=== PATIENT | female | born 1935 | race African-American/Black ===

== ENCOUNTER 2016-08-11 03:02 | Emergency (ER) | payer MEDICARE, OTHER ==
[2016-08-11 01:55] LABS: INTERNATIONAL NORMAL RATI 1.1 UNITS (-); PROTIME (NOT ORD) 14.2 SEC (12.0-14.5)
[2016-08-11 02:00] LABS: BASOPHILS 0.4 %; BASOPHILS ABSOLUTE 0.02 10/3/uL (0.0-0.16); EOSINOPHILS 3.5 %; EOSINOPHILS ABSOLUTE 0.19 10/3/uL (0.0-0.53); ER CBC TAT 0 Hrs 18 Mins; HEMATOCRIT 35.1 % (36.0-48.0); HEMOGLOBIN 11.2 g/dL (12.0-16.0); IMMATURE GRANULOCYTES 0.7 %; IMMATURE GRANULOCYTES ABSOLUTE 0.04 10/3/uL (0.0-0.11); LYMPHOCYTES 25.7 %; LYMPHOCYTES ABSOLUTE 1.38 10/3/uL (0.67-4.30); MEAN CORPUS HGB CONC 31.9 g/dL (32.0-36.0); MEAN CORPUSCULAR HEMOGLOB 30.7 pg (26.0-34.0); MEAN CORPUSCULAR VOLUME 96.2 fL (80-100); MEAN PLATELET VOLUME 10.1 fL (9.2-13.0); MONOCYTES 14.4 %; MONOCYTES ABSOLUTE 0.77 10/3/uL (0.21-1.20); NEUTROPHILS 55.3 %; NEUTROPHILS ABSOLUTE 2.96 10/3/uL (2.02-8.40); PLATELET COUNT 141 10/3/uL (150-400); RBC DISTRIBUTION WIDTH 15.7 % (12.0-16.0); RED CELL COUNT 3.65 10/6/uL (4.0-5.6); WHITE BLOOD CELLS 5.4 10/3/uL (4.5-10.5)
[2016-08-11 02:03] LABS: MANUAL DIFF NO %
[2016-08-11 02:10] LABS: BUN (BLOOD UREA NITROGEN) 45 MG/DL (6-23); CALCIUM, SERUM 7.8 MG/DL (8.5-10.4); CHEST PAIN PROFILE TAT 0 Hrs 28 Mins; CHLORIDE, SERUM 100 MMOL/L (96-112); CO2 (CARBON DIOXIDE) 27 MMOL/L (24-34); CREATININE 8.38 MG/DL (0.55-1.02); GFR AFRICAN AMERICAN 5 ML/MIN (>=60); GFR NON AFRICAN AMERICAN 4 ML/MIN (>=60); GLUCOSE, SERUM 116 MG/DL (60-99); POTASSIUM, SERUM 4.3 MMOL/L (3.5-5.3); SODIUM, SERUM 141 MMOL/L (135-148); TROPONIN I <0.02 NG/ML (<0.05)
[2016-08-11 02:34] LABS: PARTIAL THROMBO TIME 25.9 SEC (22.5-37.2)
[~2016-08-11 03:02] MED LIST: AGGRENOX PO; ALTOPREV60 MG PO; ANTI-NAUSEA PO; ASA5GR PO; ASAB PO; ATROVENTUD INH; BIDIL20/37 PO; C25 PO; C5 PO; CARASPUDL PO; CENTRUM TAB1 TAB PO; CIP5 PO; COLCH6 PO; COLCRYS0.6 MG PO; CORDARONE PO; DEMA20 PO; DIGITEK0.125 MG PO; DIL4TAB PO; DIOV160 PO; DIOVAN HC2 PO; DIOVAN320 MG PO; EPOGEN10000 MG/M SC; EZFE 200200 MG PO; FESO4 PO; FOLBIC PO; FOLIC PO; HALF81 PO; HYDROCODONE APAP PO; IRON; IRON INFUSION; IRON325 MG PO; K-TABS10 MEQ PO; KLONO5 PO; KLOR-CON 1010 MEQ PO; KLOR-CON M2020 MEQ PO; L80 PO; LANTISEPTIC; LEVAQUIN5T PO; LIPITOR40 PO; LOM PO; LOP100 PO; LOP25 PO; LOP50 PO; LORTAB 5 PO; LORTAB10 PO; MCZ25 PO; MELA3 PO; MICRO-K10 MEQ PO; NEPHRO-VITE PO; NORCO1 TA1 PO; PEP20 PO; PLAVIX PO; POTASSIUM95 MG OR; PR25 PO; PRADAXA150 MG PO; PRADAXA75 MG PO; PRILOSEC40 MG PO; PRIN5 PO; PROAIR HFA INH; PROTONIX PO; RELA5 PO; SIN25 PO; SINEQUAN 50 MG50 MG PO; T PO; TAMBOCOR PO; THERA M PLUS PO; ULORIC; ULTRAM50 PO; VIB100 PO; VIT B-SIX 50 MG50 MG PO; VITAMIN D31000 UNIT PO; VITAMIN PO; VYTORIN 10/40 T1 TAB PO; X25 PO; X5 PO; Z100 PO; ZANTAC 150 PO; ZOFRAN8 PO; ZOLOFT25 MG PO
== END 2016-08-11 03:23 | disposition home or self-care (01) ==
LOC: ER 03:02
PROVIDERS: Emergency Medicine
DX: M54.9 Dorsalgia, unspecified (principal); R53.1 Weakness; I10 Essential (primary) hypertension; I12.9 Hypertensive chronic kidney disease with stage 1 through stage 4 chronic kidney disease, or unspecified chronic kidney disease; N18.9 Chronic kidney disease, unspecified; D64.9 Anemia, unspecified; I48.91 Unspecified atrial fibrillation; Z95.0 Presence of cardiac pacemaker; Z86.73 Personal history of transient ischemic attack (TIA), and cerebral infarction without residual deficits; Z88.2 Allergy status to sulfonamides; Z91.018 Allergy to other foods; Z79.82 Long term (current) use of aspirin; Z79.899 Other long term (current) drug therapy
CPT/HCPCS: 71020; 80048; 83735; 84484; 85025; 85610; 85730; 93005; 99285; A9270-GY